=== PATIENT | male | born 1995 | race African-American/Black ===

== ENCOUNTER 2018-04-10 11:34 | Emergency (ER) | payer MEDICAID ==
[~2018-04-10] VITALS: Ht 172.7 cm; Wt 81.0 kg
[2018-04-10 11:41] VITALS: BP 136/99
== END 2018-04-10 13:33 | disposition home or self-care (01) ==
LOC: ER 11:34
DX: S00.03XA Contusion of scalp, initial encounter (principal); F12.10 Cannabis abuse, uncomplicated; W22.8XXA Striking against or struck by other objects, initial encounter; Y93.89 Activity, other specified; Y92.89 Other specified places as the place of occurrence of the external cause; Y99.8 Other external cause status
CPT/HCPCS: 70450; 99284